=== PATIENT | female | born 1995 | race Hispanic/Latino ===

== ENCOUNTER 2017-09-14 23:52 | Observation (INO) | payer MEDICAID ==
[~2017-09-14] VITALS: Ht 162.6 cm; Wt 108.0 kg
[2017-09-15] MEDS ORDERED: PREN-196 PO (00:12)
[2017-09-15] MEDS ORDERED: LACTATED RINGERS 1000ML 1,000 ML IV SCH (00:15)
[2017-09-15 00:32] LABS: APPEARANCE,URINE Clear (CLEAR); BILIRUBIN,URINE Negative (NEGATIVE); COLOR,URINE Yellow (YELLOW); GLUCOSE, URINE (UA) Negative (NEGATIVE); KETONES,URINE Negative (NEGATIVE); LEUKOCYTE ESTERASE ,URINE Trace (NEGATIVE); NITRATE,URINE Negative (NEGATIVE); OCCULT BLOOD,URINE Negative (NEGATIVE); PH,URINE 6.5 (5.0-8.0); PROTEIN,URINE Negative (NEGATIVE)
[2017-09-15] MEDS ORDERED: LACTATED RINGERS 1000ML 1,000 ML IV ONE (00:36)
[2017-09-15 00:48] LABS: AMPHET/METH SCREEN,URINE NEGATIVE (NEGATIVE); BACTERIA,URINE Rare /HPF (None Seen); BARBITURATE SCREEN, URINE NEGATIVE (NEGATIVE); BENZODIAZEPINES SCREEN,URINE NEGATIVE (NEGATIVE); CANNABINOID SCREEN,URINE NEGATIVE (NEGATIVE); COCAINE SCREEN,URINE NEGATIVE (NEGATIVE); MUCUS,URINE Moderate LPF (None Seen); OPIATE SCREEN,URINE NEGATIVE (NEGATIVE); PHENCYCLIDINE SCREEN,URINE NEGATIVE (NEGATIVE); SQUAMOUS EPITHELIAL CELL,UR Moderate /HPF (0-2)
== END 2017-09-15 02:15 | disposition home or self-care (01) ==
LOC: EDH 23:52 → LDH 23:53
PROVIDERS: ADMIT Obstetrics & Gynecology; ATTEND Obstetrics & Gynecology
DX: O26.893 Other specified pregnancy related conditions, third trimester (principal); R10.30 Lower abdominal pain, unspecified; M54.9 Dorsalgia, unspecified; O10.913 Unspecified pre-existing hypertension complicating pregnancy, third trimester; Z3A.36 36 weeks gestation of pregnancy
CPT/HCPCS: 80305; 81001; 99285; G0378 ×2; J7120; 96360

== ENCOUNTER 2018-05-30 12:35 | Emergency (ER) | payer MEDICAID ==
[~2018-05-30 12:35] MED LIST: PREN-196 PO
[2018-05-30] MEDS ORDERED: IBUPROFEN 600 MG TABLET ONE (13:53)
[2018-05-30] MEDS ORDERED: ACETAMINOPHEN-CODEINE 300/30MG TAB ONE (13:53)
== END 2018-05-30 14:57 | disposition home or self-care (01) ==
LOC: EDH 12:35
DX: M94.0 Chondrocostal junction syndrome [Tietze] (principal)
CPT/HCPCS: 71045